=== PATIENT | female | born 1985 | race American Indian/Alaskan Native ===

== ENCOUNTER 2017-08-19 11:05 | Outpatient (CLI) | payer MEDICAID ==
[2017-08-19 11:29] VITALS: BP 117/75
--- NOTE | 2017-08-19 14:12 | Ultrasound Report ---
ULTRASOUND OB LIMITED History: well being Technique: Transabdominal ultrasound with Doppler interrogation. Gestation: Single Position: Cephalic Amniotic Fluid: Normal VICTORIANO = 9.5 cm Heart Rate: 145 BPM
== END 2017-08-19 12:40 | disposition home or self-care (01) ==
LOC: TRG 11:05
PROVIDERS: ATTEND Obstetrics & Gynecology
DX: O47.1 False labor at or after 37 completed weeks of gestation (principal); Z3A.39 39 weeks gestation of pregnancy
CPT/HCPCS: 59025; 76815

== ENCOUNTER 2017-08-26 20:17 | Inpatient (IN) | payer MEDICAID ==
--- NOTE | 2017-08-26 22:30 | History and Physical Report ---
History of Present Illness Date of examination: 08/26/17 (pt seen and examined by darling in the office today) Date of admission: 08/26/17 20:17 Chief complaint: iol History of present illness: Pt here for IOL for suspected lga Office visit as follows: OB Visit Record - 40 weeks ( P: 0) EDC: 08/26/2017 Weight today: 239 lbs. - Change since last visit: -1 Pre-preg wt: 222 lbs. - Change for : +17 BP: 122/80 Urine Tests Protein: negative Glucose: negative Nitrite: negative Leukocytes: negative Chief Complaint / Current Status: pt presents for f/u.....tpassmore EFW 90th% 4094gm, 9#0oz. discussed vaginal verses operative and increased risk for shoulder dystocia d/t size of . Offered IOL tonight d/t availabity and LGA. Patient accepted, letter given and o/c provider notified. discussed w/ patient plan for cervical ripening tonight followed by pitocin tomorrow with close monitoring. All questions addressed, pt verbalized understanding ...................................................................Jazmín Zaman CNM August 26, 2017 4:08 PM Review of Systems Nausea/Vomiting: no Headaches/Vision changes: no movements: yes Leaking fluid: no Uterine contractions: no Vaginal bleeding: no Edema: no R[place] Miguel contractions: yes Physical Exam Fundal Ht: sono Size: LGA Position: vertex FHT: + Activity: + Initials: JW Physical Exam General appearance: well nourished, healthy appearing, no distress Abdomen/GI: normal bowel sounds; soft, nontender Extremities: no discoloration or edema Skin: no abnormal lesions or rashes Vagina: normal appearance, no discharge Cervix: Dilation (cm): 1.5 Effacement: 70% Station: -2 Position: posterior Consistency: soft Laboratory Results Routine Urinalysis Leukocytes: negative Nitrite: negative Urobilinogen: negative Protein: negative Blood: hemolyzed trace Ketone: negative Bilirubin: negative Glucose: negative Impression & Recommendations: Problem # 1: Encounter for supervision of normal first , third trimester (ICD-V22.0) (FHD59-E12.03) Orders: OB follow up (CPT-10435) Urine Chemstrip (CPT-40546) Problem # 2: 40 weeks gestation of (ICD-V28.9) (AFP54-O7A.40) Orders: OB follow up (CPT-49502) Urine Chemstrip (CPT-98906) Problem # 3: Uterine size-date discrepancy, third trimester (ICD-649.63) (ICD10 -O26.843) Orders: OB follow up (CPT-82136) Urine Chemstrip (CPT-18621) OB F/U ( growth,Amniotic fluid) US (CPT-37445) Patient Instructions: 1) Patient to go to Labor and Delivery @ 2029 for IOL EDC Confirmation: 08/26/2017 Gestational Age: 20 1/7 weeks Past History : 2 Term Births: 0 Premature Births: 0 Living Children: 0 Para: 0 Mult. Births: 0 Prev : 0 Prev. attempt? 0 Aborta: 1 Elect. Ab: 1 Spont. Ab: 0 Ectopics: 0 # 1 Delivery date: 2008 Weeks Gestation: 10 Delivery type: EAB Past Medical History: Hospitalized x 3weeks as child ? cause Past Surgical History: D&C: (2007) ? hyperthyroidism Family History Summary: Mother (biol.) - Has No Family History of Ovarvian Cancer - Entered On: 2016 Mother (biol.) - Has No Family History of Colon Cancer - Entered On: 04/09/2017 Mother (biol.) - Has No Family History of Breast Cancer - Entered On: 04/09/2017 Mother (biol.) - Has Family History of Hypertension - Entered On: 04/09/2017 Mother (biol.) - Has Family History of Coronary Heart Disease - Entered On: Social History: Unemployed Patient is single Risk Factors: Smoked Tobacco Use: Current every day smoker Cigarettes: Yes -- 1/2 pack(s) per day, Year started: 2006 Counseled to quit/cut down: yes Drug use: no Alcohol use: yes Drinks per day: social Dietary Counseling: pn yes Past Medical History Surgery (Non-acute care nurse): D&C: (2007) ? hyperthyroidism Abnormal PAP: negative Uterine Anomaly: negative Social Hx: Unemployed Patient is single Infection History Hx of STD: chlamydia Personal hx. of genital herpes: no Genetic History Congenital Heart Defect: Mom: no Dad: no Timoteo Disease: Mom: no Dad: no Thalassemia Mom: yes Dad: no Comments: mother Neural Tube Defect Mom: no Dad: no Down's Syndrome Mom: yes Dad: no Comments: 4th cousin Alf-Sachs Mom: no Dad: no Sickle Cell Disease/Trait Mom: no Dad: no Hemophilia Mom: no Dad: no Muscular Dystrophy Mom: no Dad: no Cystic Fibrosis Mom: no Dad: no [place] Chorea Mom: no Dad: no Mental Retardation Mom: no Dad: no Fragile X Mom: no Dad: no Other Genetic/Chromosomal Disorder Mom: no Dad: no Child w/other defect Mom: no Dad: no Enviromental Exposures Xray Exposure: no Medication, drug, or alcohol use since LMP: no Chemical/Other Exposure: no Exposure to Cat Liter: no Hx of Parvovirus (Fifth Disease): no Active Medications (reviewed today): FORMULA 27-1 MG ORAL TABLET ( VIT-FE FUMARATE-FA) 1 po q day as directed VITAMIN TABLET ( VIT-FE FUMARATE-FA TABS) Current Allergies (reviewed today): Past History Past Medical History: other (see hpi) Past Surgical History: other (see hpi) EDUCATIONAL THERAPIST History: other (see hpi) Family/Genetic History: other (see hpi) Social history: other (see hpi) - Obstetrical History Expected Date of Delivery: 08/26/17 Actual Gestation: 40 Week(s) 0 Day(s) : 2 Medications and Allergies Allergies Allergy/AdvReac Type Severity Reaction Status Date / Time No Known Allergies Allergy Verified 08/26/17 22:18 - Physical Exam Genitourinary (Female): Positive: other (see scale clerk exam note from office visit ) - Obstetrical FHR: auscultation normal Results All other labs normal. Assessment and Plan - Patient Problems (1) 40 weeks gestation of Current Visit: Yes Status: Acute (2) LGA (large for gestational age) fetus affecting mother, antepartum Current Visit: Yes Status: Acute Qualifiers: Fetus number: single or unspecified fetus Qualified Code(s): O36.60X0 - Maternal care for excessive growth, unspecified trimester, not applicable or unspecified Plan to address problem: EFW 9lbs start serial iol as per mw risk, benefits and alternatives to IOL were d/w pt and questions were addressed and answered.
[2017-08-26] MEDS ORDERED: XYLOCAINE 2% INFILTRATI ONE (22:32)
[2017-08-26] MEDS ORDERED: MINERAL OIL PO PRN (22:32)
[2017-08-26] MEDS ORDERED: ePHEDrine SULFATE IV PRN (22:32)
[2017-08-26] MEDS ORDERED: BRETHINE IVP PRN (22:32)
[2017-08-26] MEDS ORDERED: LACTATED RINGERS 1,000 ML ONE (22:32)
[2017-08-26] MEDS ORDERED: CERVIDIL VG ONE (22:32)
[2017-08-26] MEDS ORDERED: BRETHINE SUB-Q PRN (22:32)
[2017-08-26] MEDS ORDERED: SUBLIMAZE IV PRN (22:35)
[2017-08-26] MEDS: LACTATED RINGERS 1,000 ML IV SCH (22:51)
[2017-08-26 22:56] LABS: Hematocrit 36.8 % (30.3-42.9); Hemoglobin 12.1 gm/dl (10.1-14.3); Mean Corpuscular HGB Conc 33 % (30-34); Mean Corpuscular Hemoglobin 29 pg (28-32); Mean Corpuscular Volume 88 fl (79-97); Platelet Count 344 K/mm3 (140-440); Red Blood Count 4.17 M/mm3 (3.65-5.03); Red Cell Distribution Width 13.3 % (13.2-15.2)
[2017-08-26] MEDS ORDERED: PITOCin/NS 20 UNIT/1000ML DRIP 20 UNITS/1,000 ML BAG IV SCH (23:00)
[2017-08-26] MEDS ORDERED: PITOCin/NS 30 UNIT/500ML 30 UNITS/500 ML BAG IV SCH (23:00)
[2017-08-26] MEDS ORDERED: TYLENOL PO ONE (23:21)
[2017-08-27] MEDS ORDERED: CERVIDIL VG ONE (02:06)
[2017-08-27] MEDS ORDERED: BENADRYL PO PRN (02:07)
[2017-08-27] MEDS: LACTATED RINGERS 1,000 ML IV SCH ×3 (05:31→12:49)
--- NOTE | 2017-08-27 05:39 | Progress Note ---
Assessment and Plan Pt has had 2 cervidils that fell out with toileting. SVE 3,70,-1 Will start pitocin per protocol Bolus for epidural if desired. Re-eval as needed Subjective - Subjective Date of service: 08/27/17 (pt resting) Patient reports: movement normal Objective - Vital Signs Vital Signs: Vital Signs - 12hr 08/26/17 08/27/17 22:30 01:58 Temperature 96.9 F L 97.2 F L Pulse Rate 100 H 86 Respiratory 12 13 Rate Blood Pressure 124/75 124/75 [Right] O2 Sat by Pulse 98 97 Oximetry - Exam Breasts: deferred Cardiovascular: Regular rate Lungs: Normal air movement Abdomen: Present: normal appearance, soft. Absent: distention, tenderness Uterus: Present: normal FHR: auscultation normal, category 1 Uterine Contraction Monitor Mode: External Cervical Dilatation: 3 Cervical Effacement Percentage: 70 station: -1 Uterine Contraction Pattern: Regular Uterine Tone Measurement Phase: Resting Uterine Contraction Intensity: Mild Extremities: edema Deep Tendon Reflex Grade: Normal +2 - Labs Labs: Abnormal Labs 08/26/17 21:55 WBC 12.1 H Laboratory Results - last 24 hr 08/26/17 08/26/17 21:55 21:55 WBC 12.1 H RBC 4.17 Hgb 12.1 Hct 36.8 MCV 88 MCH 29 MCHC 33 RDW 13.3 Plt Count 344 Blood Type B POSITIVE Antibody Screen Negative
[2017-08-27] MEDS ORDERED: PITOCin/NS 30 UNIT/500ML 30 UNITS/500 ML BAG IV SCH (06:00)
[2017-08-27] MEDS ORDERED: ZOFRAN IV ONE (06:33)
[2017-08-27] MEDS ORDERED: NACL 0.9% 1000 ML 1,000 ML ONE (07:16)
--- NOTE | 2017-08-27 07:16 | Anesthesia Consultation ---
Anesthesia Consult and Med Hx Date of service: 08/27/17 - Airway Anesthetic Teeth Evaluation: Good ROM Head & Neck: Adequate Mental/Hyoid Distance: Adequate Mallampati Class: Class II Intubation Access Assessment: Probably Good - Pre-Operative Health Status ASA Pre-Surgery Classification: ASA3 Proposed Anesthetic Plan: Epidural, Spinal - Pulmonary Hx Asthma: No - Cardiovascular System Hx Hypertension: No - Central Nervous System Hx Seizures: No Hx Psychiatric Problems: No - Endocrine Hx Renal Disease: No Hx Hypothyroidism: No Hx Hyperthyroidism: No - Hematic Hx Anemia: No Hx Sickle Cell Disease: No - Other Systems Hx Alcohol Use: No Hx Obesity: Yes (BMI 38.3)
[2017-08-27] MEDS ORDERED: ePHEDrine SULFATE IV PRN (08:00)
[2017-08-27] MEDS ORDERED: NACL 0.9% 1000 ML 1,000 ML IV SCH (08:00)
[2017-08-27] MEDS ORDERED: NARCAN 2 MG/2 ML IV PRN (08:00)
[2017-08-27] MEDS: fentaNYL-BUPIV 2 MCG/ML-0.125% 200 MCG/100 ML BAG EPIDURAL SCH ×2 (09:34→16:37)
--- NOTE | 2017-08-27 11:42 | Progress Note ---
Assessment and Plan pt resting voicing no c/o Likes epidural! VSS Ctx q 2,45,mod FHR Cat 1 Internal monitors Pit @ 20mu Re-eval as needed. Subjective - Subjective Date of service: 08/27/17 (pt comfortable with epidural) Patient reports: movement normal Objective - Vital Signs Vital Signs: Vital Signs - 12hr 08/27/17 08/27/17 08/27/17 01:58 08:00 11:25 Temperature 97.2 F L 97.4 F L 99.0 F Pulse Rate 86 Respiratory 13 22 18 Rate Blood Pressure 124/75 [Right] O2 Sat by Pulse 97 Oximetry - Exam Breasts: deferred Cardiovascular: Regular rate Lungs: Normal air movement Abdomen: Present: normal appearance, soft. Absent: distention, tenderness Vulva: both: normal Uterus: Present: normal FHR: auscultation normal, category 1 Uterine Contraction Monitor Mode: Internal Cervical Dilatation: 5 Cervical Effacement Percentage: 100 station: -1 Uterine Contraction Pattern: Regular Uterine Tone Measurement Phase: Resting Uterine Contraction Intensity: Mild Extremities: normal Deep Tendon Reflex Grade: Normal +2 - Labs Labs: Abnormal Labs 08/26/17 21:55 WBC 12.1 H Laboratory Results - last 24 hr 08/26/17 08/26/17 21:55 21:55 WBC 12.1 H RBC 4.17 Hgb 12.1 Hct 36.8 MCV 88 MCH 29 MCHC 33 RDW 13.3 Plt Count 344 Blood Type B POSITIVE Antibody Screen Negative
--- NOTE | 2017-08-27 18:30 | Progress Note ---
Assessment and Plan - Patient Problems (1) LGA (large for gestational age) fetus affecting mother, antepartum Onset Date: ~08/27/17 Current Visit: Yes Status: Acute Qualifiers: Fetus number: single or unspecified fetus Qualified Code(s): O36.60X0 - Maternal care for excessive growth, unspecified trimester, not applicable or unspecified Plan to address problem: Pit @ 36 mu SVE 9,100,0 Position chged aware of pt's status Re-eval as needed Subjective - Subjective Date of service: 08/27/17 (pt w/o complaint) Principal diagnosis: IUP @ 40 weeks LGA fetus for IOL Patient reports: movement normal Objective - Vital Signs Vital Signs: Vital Signs - 12hr 08/27/17 08/27/17 08/27/17 08:00 11:25 15:28 Temperature 97.4 F L 99.0 F 99.0 F Respiratory 22 18 18 Rate - Exam Breasts: deferred Cardiovascular: Regular rate Lungs: Normal air movement Abdomen: Present: normal appearance, soft. Absent: distention, tenderness Uterus: Present: normal FHR: auscultation normal, category 1 Uterine Contraction Monitor Mode: Internal Cervical Dilatation: 9 Cervical Effacement Percentage: 100 station: 0 Uterine Contraction Pattern: Regular Uterine Tone Measurement Phase: Resting Uterine Contraction Intensity: Moderate Extremities: normal Deep Tendon Reflex Grade: Normal +2 - Labs Labs: Abnormal Labs 08/26/17 21:55 WBC 12.1 H Laboratory Results - last 24 hr 08/26/17 08/26/17 08/26/17 21:55 21:55 21:55 WBC 12.1 H RBC 4.17 Hgb 12.1 Hct 36.8 MCV 88 MCH 29 MCHC 33 RDW 13.3 Plt Count 344 RPR Nonreactive Blood Type B POSITIVE Antibody Screen Negative
[2017-08-27] MEDS ORDERED: REGLAN IV ONE (19:42)
[2017-08-27] MEDS ORDERED: PEPCID IV ONE (19:42)
[2017-08-27] MEDS ORDERED: BICITRA PO ONE (19:42)
--- NOTE | 2017-08-27 19:42 | Progress Note ---
Assessment and Plan - Patient Problems (1) LGA (large for gestational age) fetus affecting mother, antepartum Onset Date: ~08/27/17 Current Visit: Yes Status: Acute Qualifiers: Fetus number: single or unspecified fetus Qualified Code(s): O36.60X0 - Maternal care for excessive growth, unspecified trimester, not applicable or unspecified Plan to address problem: Despite good pushing effort Arrest of descent OP presentation Consulted with c/s called Subjective - Subjective Date of service: 08/27/17 (arrest of descent) Principal diagnosis: IUP @ 40 weeks LGA fetus for IOL Patient reports: movement normal Objective - Vital Signs Vital Signs: Vital Signs - 12hr 08/27/17 08/27/17 08/27/17 08:00 11:25 15:28 Temperature 97.4 F L 99.0 F 99.0 F Respiratory 22 18 18 Rate - Exam Breasts: deferred Cardiovascular: Regular rate Lungs: Normal air movement Abdomen: Present: normal appearance, soft. Absent: distention, tenderness Uterus: Present: normal FHR: auscultation normal, category 2 (variables with pushing) Uterine Contraction Monitor Mode: External Cervical Dilatation: 10 Cervical Effacement Percentage: 100 (caput) station: -1 Uterine Contraction Pattern: Regular Uterine Tone Measurement Phase: Resting Uterine Contraction Intensity: Moderate Extremities: normal Deep Tendon Reflex Grade: Normal +2 - Labs Labs: Abnormal Labs 08/26/17 21:55 WBC 12.1 H Laboratory Results - last 24 hr 08/26/17 08/26/17 08/26/17 21:55 21:55 21:55 WBC 12.1 H RBC 4.17 Hgb 12.1 Hct 36.8 MCV 88 MCH 29 MCHC 33 RDW 13.3 Plt Count 344 RPR Nonreactive Blood Type B POSITIVE Antibody Screen Negative
[2017-08-27] MEDS ORDERED: LACTATED RINGERS 1,000 ML IV SCH (20:00)
[2017-08-27] MEDS ORDERED: PITOCin/NS 20 UNIT/1000ML DRIP 20 UNITS/1,000 ML BAG IV SCH ×2 (20:00→22:00)
[2017-08-27] MEDS ORDERED: ANCEF/STERILE WATER 2 GM/20 ML 2 GM/20 ML SYRINGE IV NR (20:00)
[2017-08-27] MEDS ORDERED: NACL 0.9% IR ONE (20:10)
[2017-08-27] MEDS ORDERED: WATER FOR IRRIG STERILE IR ONE (20:10)
--- NOTE | 2017-08-27 21:12 | Operative Report ---
Operative Report Operative Report: Date of Procedure: 08/27/2017 Procedure name(s): Primary transverse low segment section Pre-operative diagnosis: Intrauterine at 40 weeks gestation, induction of labor for suspected macrosomia and postdates, failure of descent after complete cervical dilation and pushing, persistent OP presentation Post-operative diagnosis: Same Surgeon: Sandra Sandy M.D. Learning Engineer: STEWART Anesthesia: Epidural EBL: 700 mL : 8 pounds (3624 g) male with Apgars of 8 and 9. Meconium at the time of delivery Time of : 2020 Findings Normal tubes, uterus and ovaries. Large wedged in occiput posterior Procedure The patient was taken to the operating room and after adequate anesthesia was obtained she was placed in the supine position in left lateral tilt. Sequential compression devices were in place on both lower extremities and a Grullon catheter was placed in a sterile fashion. The abdomen was then prepped and draped in the usual fashion. Surgical time-out was done with the entire OR team attentive. A Pfannenstiel incision was made with a scalpel and sharp dissection was carried down through all layers of the abdomen in the usual fashion. The abdomen was entered bluntly and the lower uterine segment was identified. The presenting part was palpated and a bladder flap was created with the Metzenbaum scissors. The scalpel was used to incise the uterus in a transverse fashion and this incision was extended bluntly with finger traction and the membranes were ruptured. My hand was inserted into the uterus. The vertex was grasped, rotated to an OA presentation and delivered with a combination of traction and fundal pressure. The cord was clamped and cut and a viable infant was suctioned and handed off to the attending NICU staff and was a 8 pounds (3624 g) male with Apgars of 8 and 9. The placenta was removed manually, the interior of the uterus was cleansed with moist lap packs and the uterus was exteriorized. The uterine incision was closed with a double imbricating layer of 0 Vicryl suture in a running fashion. Hemostasis was adequate and the uterus was returned to the abdomen. Uterus was well contracted. The abdomen was then closed in layers: the rectus muscles were closed with several [id number] sutures of 0 Vicryl, the fascia was closed with running sutures of 0 Vicryl starting at both side corners in turn and tied together in the midline. The subcutaneous tissue was irrigated and then closed with several interrupted sutures of 2-0 plain and the skin was closed with a running subcuticular suture of 4-0 Vicryl. Sponge and Lap count correct X 3, estimated blood loss was 700 mL and the Grullon was draining clear urine, prior to delivery urine was blood tinged. The patient tolerated the procedure well and was discharged to PACU in good condition.
[2017-08-27] MEDS ORDERED: NORCO 5/325 PO PRN (21:16)
[2017-08-27] MEDS ORDERED: LANSINOH TP PRN (21:16)
[2017-08-27] MEDS ORDERED: ZOFRAN IV PRN (21:16)
[2017-08-27] MEDS ORDERED: MILK OF MAGNESIA PO PRN (21:16)
[2017-08-27] MEDS ORDERED: NARCAN 0.4 MG/1 ML IV PRN (21:16)
[2017-08-27] MEDS ORDERED: TYLENOL PO PRN (21:16)
[2017-08-27] MEDS ORDERED: TUCKS PAD TP PRN (21:16)
[2017-08-27] MEDS ORDERED: MYLICON PO PRN (21:16)
[2017-08-27] MEDS ORDERED: D5LR 1,000 ML IV SCH (22:00)
[2017-08-27] MEDS ORDERED: SODIUM CHLORIDE FLUSH SYRINGE 10 ML IV PRN (22:00)
[2017-08-27] MEDS ORDERED: ANCEF/NS 1 GM/50 ML 1 GM/50 ML BAG IV SCH (22:00)
[2017-08-27] MEDS ORDERED: MORPHINE IV PRN (22:11)
[2017-08-27] MEDS: TORADOL IV PRN (23:01)
[2017-08-27] MEDS: METHERGINE PO SCH (23:02)
[2017-08-28] MEDS: MORPHINE IV PRN ×2 (00:24→04:00)
[2017-08-28] MEDS: ceFAZolin 1 GM in NACL 0.9% 20 ML IV SCH ×2 (03:45→12:55)
[2017-08-28] MEDS: METHERGINE PO SCH ×3 (06:43→22:07)
[2017-08-28] MEDS: TORADOL IV PRN ×2 (06:43→12:45)
--- NOTE | 2017-08-28 08:06 | Progress Note ---
Assessment and Plan patient resting <12hrs post c/s. pulido cath to be removed @ 0900. Dressing intact and dry. postop H&H ordered for 0900. VSSAF. Pt encouraged to breastfeed. states her mother will be here in a few hours. Continue postop pathway. - Patient Problems (1) delivery delivered Current Visit: Yes Status: Acute Subjective - Subjective Date of service: 08/28/17 Principal diagnosis: postop day #1 s/p primary c/s Patient reports: pain well controlled, flatus, no nauseated : doing well, nursing well Objective - Vital Signs Latest vital signs: Vital Signs Temp Pulse Resp BP BP Pulse Ox 08/28/17 04:30 98.5 F 96 H 20 126/72 99 08/27/17 23:25 99.4 F 109 H 20 132/76 97 08/27/17 22:15 100.0 F H 93 H 24 145/81 96 08/27/17 22:00 91 H 22 152/83 96 08/27/17 21:45 93 H 23 145/81 96 08/27/17 21:30 93 H 19 138/72 96 08/27/17 21:25 91 H 21 138/75 97 08/27/17 21:22 99.3 F 95 H 21 130/74 97 08/27/17 19:10 99.0 F 20 08/27/17 15:28 99.0 F 18 08/27/17 11:25 99.0 F 18 Intake and Output 08/27/17 08/28/17 08/28/17 23:59 07:59 15:59 Intake Total 1970 480 Output Total 1300 1300 Balance 670 -820 Intake: IV 1850 Oral 120 480 Output: Urine 1300 1300 Indwelling Catheter 400 1300 Uretheral (Pulido) 400 Other: Total, Intake Amount 120 240 Total, Output Amount 400 500 Estimated Blood Loss 700 - Exam Breasts: Present: normal, Cardiovascular: Present: Regular rate Lungs: Present: Clear to auscultation, Normal air movement Abdomen: Present: normal appearance, soft Vulva: both: normal Uterus: Present: normal, firm, fundal height at umbilicus Extremities: Present: normal Incision: Present: normal, dry, intact
--- NOTE | 2017-08-28 08:10 | Discharge Summary ---
Providers - Providers Date of Admission: 08/26/17 20:17 Date of discharge: 08/28/17 (desires d/c home today) Attending physician: ALEX PATEL 08/27/17 21:16 Consult to Steam Shovel Operating Engineer [CONS] Routine Reason For Exam: Primary care physician: ALEX PATEL Hospitalization Reason for admission: labor, very limited pnc Condition: Good Procedures: Hospital course: labor @ 35 weeks, magnesium sulfate for neuroprotection and steroids for lung maturity, and normal course. Disposition: DC-01 TO HOME OR SELFCARE - Discharge Diagnoses (1) delivery delivered Status: Acute Core Measure Documentation - Palliative Care Palliative Care/ Comfort Measures: Not Applicable - Core Measures Any of the following diagnoses?: none Exam - Constitutional Vitals: Temp Pulse Resp BP Pulse Ox 98.5 F 96 H 20 126/72 99 08/28/17 04:30 08/28/17 04:30 08/28/17 04:30 08/28/17 04:30 08/28/17 04:30 General appearance: Present: no acute distress, well-nourished - EENT Eyes: Present: PERRL ENT: hearing intact, clear oral mucosa - Neck Neck: Present: supple, normal ROM - Respiratory Respiratory effort: normal Respiratory: bilateral: CTA - Cardiovascular Heart Sounds: Present: S1 & S2. Absent: rub, click - Extremities Extremities: pulses symmetrical, No edema Peripheral Pulses: within normal limits - Abdominal General gastrointestinal: Present: soft, non-tender, non-distended, normal bowel sounds Female genitourinary: Present: normal - Integumentary Integumentary: Present: clear, warm, dry - Musculoskeletal Musculoskeletal: gait normal, strength equal bilaterally - Psychiatric Psychiatric: appropriate mood/affect, intact judgment & insight - Neurologic Neurologic: CNII-XII intact, moves all extremities - Additional findings Additional findings: lochia scant, VSSAF, H&H stable, bottle feeding , desires depo for contraception prior to d/c home. Patient does not plan on having son circumcised. Advised if she changes her mind, she can call our office to schedule. Plan Activity: no restrictions Diet: regular Follow up with: ALEX PATEL MD [Primary Care Provider] - 6 Weeks (Congratulations! Please call [phone] to schedule your visit in 6 weeks. Call for any questions or concerns.) Prescriptions: Ibuprofen [Motrin 800 MG tab] 800 mg PO Q8HR PRN #30 tablet PRN Reason: Pain Lidocain2.5%/Prilocai2.5% [Emla] 5 gm TP 1XW #1 tube oxyCODONE /ACETAMINOPHEN [Percocet 5/325 mg] 1 - 2 tab PO Q4HR PRN #30 tab PRN Reason: Pain
[2017-08-28 09:51] LABS: Hematocrit 31.2 % (30.3-42.9); Hemoglobin 10.5 gm/dl (10.1-14.3)
[2017-08-28] MEDS: FEOSOL PO SCH (11:00)
[2017-08-28] MEDS: PRENATAL VITAMIN PO SCH (11:00)
[2017-08-28] MEDS: PERCOCET 5/325 PO PRN (19:37)
[2017-08-29] MEDS: PERCOCET 5/325 PO PRN ×4 (01:50→22:39)
[2017-08-29] MEDS: METHERGINE PO SCH ×3 (05:49→22:41)
[2017-08-29] MEDS ORDERED: BOOSTRIX IM ONE (06:00)
--- NOTE | 2017-08-29 06:26 | Progress Note ---
Assessment and Plan - Patient Problems (1) delivery delivered Onset Date: ~08/29/17 Current Visit: Yes Status: Acute Plan to address problem: Pt had been using bedside commode Will remove and start using toilet today Pt asks to keep walker for awhile VSS FF below umb Lochia scant Incision D&I small area abrasion where tape was removed Will apply antibiotic ont PRN H&H 04/23 drop r/t to blood loss from surgery No s/sx of anemia Doing well s/p c/s ( pt was seen by anesthesia yesterday and cleared) P: continue pathway Advance as tolerated. Pt aware tomorrow is d/c day. Will get up more today and regain strength to ambulate in room. Subjective - Subjective Date of service: 08/29/17 (pt continues to c/o numbness in foot) Principal diagnosis: postop day #2 s/p primary c/s Patient reports: appetite normal, voiding normally, pain well controlled, ambulating normally (strongly encouraged to ambulate more in room) [place]: doing well Objective - Vital Signs Latest vital signs: Vital Signs Temp Pulse Resp BP Pulse Ox 08/29/17 01:50 20 08/29/17 00:15 98.5 F 79 18 134/84 96 08/28/17 21:15 98.0 F 88 130/83 08/28/17 19:37 20 08/28/17 17:30 98.2 F 92 H 18 128/84 97 08/28/17 13:56 98.1 F 101 H 18 131/83 96 08/28/17 09:08 98.6 F 92 H 18 117/75 96 Intake and Output 08/28/17 08/28/17 08/29/17 14:59 22:59 06:59 Intake Total 240 740 480 Output Total 300 950 Balance -60 -210 480 Intake: Oral 240 740 480 Output: Urine 300 950 Indwelling Catheter 300 Void 950 Other: Total, Intake Amount 240 240 240 Total, Output Amount 300 500 # Voids Void 2 1 - Exam Breasts: Present: normal Cardiovascular: Present: Regular rate Lungs: Present: Normal air movement Abdomen: Present: normal appearance, soft, normal bowel sounds Uterus: Present: normal, firm, fundal height below umbilicus Extremities: Present: normal, other (pt has full ROM in both legs; good pulses, warm ) Deep Tendon Reflex Grade: Normal +2 Incision: Present: normal, dry, intact
[2017-08-29] MEDS: PRENATAL VITAMIN PO SCH (09:56)
[2017-08-29] MEDS: FEOSOL PO SCH (09:56)
[2017-08-29] MEDS: TRIPLE ANTIBIOTIC TP SCH ×3 (09:56→20:53)
[2017-08-29] MEDS: MOTRIN PO PRN ×2 (11:04→16:17)
--- NOTE | 2017-08-29 20:03 | Progress Note ---
Subjective Date of service: 08/29/17 Principal diagnosis: postop day #2 s/p primary c/s Interval history: Ms Mancuso has C/S for failure to descend on 08/27/17. Combined spinal epidural anesthesia was used. On 08/28/17 she developed numbness and tingling over the dorsal aspect of her left foot with a pins and needles effect. Since then the abnormal sensations have decreased significantly in intensity. On exam the patient had essentially normal motor and reflexes. She was reassured and told to contact anesthesia if symptoms persisted. No additional workup is needed at present. Objective - Constitutional Vitals: Vital Signs - 12hr 08/29/17 16:20 Temperature 98.4 F Pulse Rate 82 Respiratory 18 Rate Blood Pressure 120/80 [Right] - Labs CBC & Chem 7: 08/28/17 09:25
[2017-08-29 21:27] LABS: Hematocrit 29.2 % (30.3-42.9); Hemoglobin 9.7 gm/dl (10.1-14.3)
[2017-08-30 01:45] VITALS: BP 113/72
[2017-08-30] MEDS: PERCOCET 5/325 PO PRN (05:28)
[2017-08-30] MEDS: MOTRIN PO PRN ×2 (05:29→13:06)
--- NOTE | 2017-08-30 07:38 | Discharge Summary ---
Providers - Providers Date of Admission: 08/26/17 20:17 Date of discharge: 08/30/17 (desires d/c home today) Attending physician: ALEX PATEL 08/27/17 21:16 Consult to Plastic Eye Technician [CONS] Routine Reason For Exam: Primary care physician: ALEX PATEL Hospitalization Reason for admission: iol for suspected LGA @ 40 weeks Condition: Good Procedures: primary c/s Hospital course: failure to decend, primary c/s Disposition: DC-01 TO HOME OR SELFCARE - Discharge Diagnoses (1) delivery delivered Status: Acute Core Measure Documentation - Palliative Care Palliative Care/ Comfort Measures: Not Applicable - Core Measures Any of the following diagnoses?: none Exam - Constitutional Vitals: Temp Pulse Resp BP Pulse Ox 98.9 F 71 18 113/72 96 08/30/17 00:10 08/30/17 00:10 08/30/17 00:10 08/30/17 00:10 08/30/17 00:10 General appearance: Present: no acute distress, well-nourished - EENT Eyes: Present: PERRL ENT: hearing intact, clear oral mucosa - Neck Neck: Present: supple, normal ROM - Respiratory Respiratory effort: normal Respiratory: bilateral: CTA - Cardiovascular Heart Sounds: Present: S1 & S2. Absent: rub, click - Extremities Extremities: pulses symmetrical, No edema Peripheral Pulses: within normal limits - Abdominal General gastrointestinal: Present: soft, non-tender, non-distended, normal bowel sounds Female genitourinary: Present: normal - Integumentary Integumentary: Present: clear, warm, dry - Musculoskeletal Musculoskeletal: gait normal, strength equal bilaterally - Psychiatric Psychiatric: appropriate mood/affect, intact judgment & insight - Neurologic Neurologic: CNII-XII intact, moves all extremities - Additional findings Additional findings: Incision D&I, lochia scant, VSSAF, H&H stable ( no s/s anemia.) pt . Pt does not plan on having circumcised, advised if she changes her mind we do circs in the office after the has been seen by their peds. pt attentive to infant's needs, good boss between and mother. f/u in office 1 week for incision check. Plan Activity: advance as tolerated Weight Bearing Status: Full Weight Bearing Diet: regular Wound: open to air, keep clean and dry Follow up with: ALEX PATEL MD [Primary Care Provider] - 7 Days (Congratulations! Please call [phone] to schedule your incision check in 7 days. Call for any questions or concerns.) Prescriptions: Ibuprofen [Motrin 800 MG tab] 800 mg PO Q8HR PRN #30 tablet PRN Reason: Pain Lidocain2.5%/Prilocai2.5% [Emla] 5 gm TP 1XW #1 tube oxyCODONE /ACETAMINOPHEN [Percocet 5/325 mg] 1 - 2 tab PO Q4HR PRN #30 tab PRN Reason: Pain
[2017-08-30] MEDS: PRENATAL VITAMIN PO SCH (10:33)
[2017-08-30] MEDS: FEOSOL PO SCH (10:34)
== END 2017-08-30 13:20 | disposition home or self-care (01) | DRG 765 ==
LOC: LD 20:17 → OB 08-27 22:50
PROVIDERS: ADMIT Obstetrics & Gynecology; ATTEND Obstetrics & Gynecology
PROC: 10D00Z1 Extraction of Products of Conception, Low, Open Approach (ICD-10-PCS; principal; 2017-08-27)
DX: O36.63X0 Maternal care for excessive fetal growth, third trimester, not applicable or unspecified (principal); R71.0 Precipitous drop in hematocrit; Z3A.40 40 weeks gestation of pregnancy; Z37.0 Single live birth; O48.0 Post-term pregnancy; O61.0 Failed medical induction of labor
CPT/HCPCS: 36415; 59200; 85014; 85018; 85027; 86592; 86850; 86900; 86901; 99211; A6250; G0463; J0690; J1885; J2270; J2405; J2590; J2765; J3010; J7030; J7120; J7121